=== PATIENT | female | born 1950 | race Caucasian/White ===

== ENCOUNTER 2022-05-18 17:02 | Emergency (ER) | payer MEDICARE, BC ==
[2022-05-18] MEDS: Nitroglycerin 0.4 MG Tab.SL SL ONE (18:14)
[2022-05-18] MEDS: Morphine 2 MG/ML SYRINGE IVPUSH ONE (18:14)
[2022-05-18] MEDS: Sodium Chloride 0.9% 500 ML IV SCH (18:22)
[2022-05-18] MEDS: Ondansetron 4 MG/2 ML SDV IVPUSH ONE (18:42)
[2022-05-18] MEDS: Ondansetron 4 MG/2 ML SDV ONE (19:34)
== END 2022-05-18 20:10 | disposition home or self-care (01) ==
LOC: KA.ED 17:02
DX: U07.1 COVID-19 (principal); R07.89 Other chest pain; Z79.899 Other long term (current) drug therapy; Z79.82 Long term (current) use of aspirin
CPT/HCPCS: 36415; 71045; 80053; 82550; 83880; 84484; 85025; 85379; 93010; 96374; 96375; 99284; 99285-25; A9270-GY; J2270; J2405; J7040